=== PATIENT | female | born 1930 | race Hispanic/Latino ===

== ENCOUNTER 2018-07-09 20:56 | Inpatient (IN) | payer MEDICARE ==
[2018-07-09 21:10] VITALS: BMI 24.9
--- NOTE | 2018-07-09 22:21 | ED PDOC ---
Arrival/HPI - General Historian: Patient - History of Present Illness Narrative History of Present Illness (Text): 07/09/18 22:18 87 year old female, with no significant past medical history, presents to the emergency department for evaluation, status post mechanical fall. Patient states she slipped while at home and fell. Patient states she fell onto her left side, hurting her left knee and left hip. Patient denies any head injury or LOC. Patient denies any neck pain, back pain, nausea, vomiting, diarrhea, abdominal pain, shortness of breath, chest pain, or any other complaints. Time/Duration: Prior to Arrival Symptom Onset: Sudden Symptom Course: Unchanged Activities at Onset: Light Context: Home <Misty Carballo PA-C - Last Filed: 07/10/18 01:13> <Bharath Hearn - Last Filed: 07/10/18 02:03> - General Chief Complaint: Trauma Time Seen by Provider: 07/09/18 21:19 Past Medical History - Provider Review Nursing Documentation Reviewed: Yes - Infectious Disease Hx of Infectious Diseases: None - Tetanus Immunization Tetanus Immunization: Unknown - Cardiac Hx Hypertension: Yes - Hematological/Oncological Hx Cancer: Yes (L breast CA with mastectomy) - Psychiatric Hx Depression: No Hx Emotional Abuse: No Hx Physical Abuse: No Hx Substance Use: No - Surgical History Hx Hysterectomy: Yes Hx Mastectomy: Yes (LEFT BREAST) - Anesthesia Hx Anesthesia: Yes Hx Anesthesia Reactions: No Hx Malignant Hyperthermia: No - Suicidal Assessment Feels Threatened In Home Enviroment: No <Misty Carballo PA-C - Last Filed: 07/10/18 01:13> Family/Social History - Physician Review Nursing Documentation Reviewed: Yes Family/Social History: No Known Family HX Smoking Status: Never Smoked Hx Alcohol Use: No Hx Substance Use: No Hx Substance Use Treatment: No <Misty Carballo PA-C - Last Filed: 07/10/18 01:13> Allergies/Home Meds <Misty Carballo PA-C - Last Filed: 07/10/18 01:13> <Bharath Hearn - Last Filed: 07/10/18 02:03> Allergies/Adverse Reactions: Allergies Penicillins Allergy (Verified 07/09/18 21:10) RASH Home Medications: Home Meds Medication Instructions Recorded Confirmed Atorvastatin Calcium [Lipitor] 10 mg PO DAILY 07/16/12 07/09/18 Metoprolol Succinate XL [Toprol XL] 25 mg PO DAILY 07/16/12 07/09/18 Meclizine [Antivert] 25 mg PO PRN PRN 01/31/14 07/09/18 Review of Systems - Physician Review All systems were reviewed & negative as marked: Yes - Review of Systems Respiratory: absent: SOB Cardiovascular: absent: Chest Pain Gastrointestinal: absent: Abdominal Pain, Diarrhea, Nausea, Vomiting Musculoskeletal: Arthralgias (Left hip and left knee). absent: Back Pain, Neck Pain <Misty Carballo PA-C - Last Filed: 07/10/18 01:13> Physical Exam Vital Signs Reviewed: Yes Vital Signs Temp Pulse Resp BP Pulse Ox 07/09/18 21:59 98.0 F 70 18 130/76 99 Temperature: Afebrile Blood Pressure: Normal Pulse: Regular Respiratory Rate: Normal Appearance: Positive for: Well-Appearing, Non-Toxic, Comfortable Pain Distress: None Mental Status: Positive for: Alert and Oriented X 3 - Systems Exam Head: Present: Atraumatic, Normocephalic Pupils: Present: PERRL Extroacular Muscles: Present: EOMI Conjunctiva: Present: Normal Mouth: Present: Moist Mucous Membranes Neck: Present: Normal Range of Motion Respiratory/Chest: Present: Clear to Auscultation, Good Air Exchange. No: Respiratory Distress, Accessory Muscle Use Cardiovascular: Present: Regular Rate and Rhythm, Normal S1, S2. No: Murmurs Abdomen: No: Tenderness, Distention, Peritoneal Signs Back: Present: Normal Inspection Upper Extremity: Present: Normal Inspection. No: Cyanosis, Edema Lower Extremity: No: Edema, NORMAL PULSES (Distal pulses weak bilaterally), Normal ROM (Limited ROM secondary to pain of the lower left extremity) Neurological: Present: GCS=15, CN II-XII Intact, Speech Normal Skin: Present: Warm, Dry, Normal Color. No: Rashes Psychiatric: Present: Alert, Oriented x 3, Normal Insight, Normal Concentration <Misty Carballo PA-C - Last Filed: 07/10/18 01:13> Vital Signs Temp Pulse Resp BP Pulse Ox 07/09/18 22:37 98.3 F 68 18 136/90 98 07/09/18 21:59 98.0 F 70 18 130/76 99 <Bharath Hearn - Last Filed: 07/10/18 02:03> Medical Decision Making ED Course and Treatment: 07/09/18 22:23 Impression: 87 year old female, presents for evaluation of left leg pain status post fall. Plan: -- Tylenol -- Xray left femur -- Xray left hip -- Xray left knee -- Reassess and disposition Prior Visits: Notes and results from previous visits were reviewed. Progress Notes: 07/10/18 00:30 Xray left femur : +comminuted fracture of the L hip just below the greater trochanter, no dislocation. Xray left hip : +comminuted fracture of the L hip just below the greater trochanter, no dislocation. Xray left knee : no fracture, no dislocation. On reevaluation, patient remains awake alert and oriented 3 in no acute distress. XR results d/w the patient and her son, diagnosis of L hip fracture d/w the patient and her son. Son states that the patient has seen Dr. Carranza in the past. Case d/w Dr. Carranza, agrees with plan to admit. Case d/w Dr. Najera, agrees with plan to admit with consult to Dr. Caballero. Labs, EKG, CXR ordered. 07/10/18 01:13 Labs reviewed : wbc 15, rest of labs wnl. CXR : NAD. - RAD Interpretation Radiology Orders: 07/09/18 21:29 FEMUR MIN 2 VIEWS LT [RAD] Stat HIP MIN 2V W/ PELVIS LT [RAD] Stat KNEE LEFT 2 VIEWS (AP & LAT) [RAD] Stat - Medication Orders Current Medication Orders: Discontinued Medications Acetaminophen (Tylenol 325mg Tab) 650 mg PO STAT STA Stop: 07/09/18 21:30 Last Admin: 07/09/18 21:41 Dose: 650 mg MAR Pain/Vitals Document 07/09/18 21:41 JOL (Rec: 07/09/18 21:42 JOL [id number]) Pain Reassessment Is This A Pain ReAssessment? No Sleep Is patient sleeping during reassessment? No Presence of Pain Presence of Pain Yes Pain Scale Used Protocol: PSCALES Pain Scale Used Numeric Location Pain Location Body Site Hip Intensity 6 Scale Used Numeric <Misty Carballo PA-C - Last Filed: 07/10/18 01:13> - Lab Interpretations Lab Results: PT 11.2 SECONDS (9.4-12.5) 07/10/18 00:15 INR 1.01 07/10/18 00:15 APTT 29.7 Seconds (26.9-38.3) 07/10/18 00:15 Total Bilirubin 0.3 mg/dL (0.2-1.3) 07/10/18 00:15 AST 25 U/L (14-36) 07/10/18 00:15 ALT 13 U/L (7-56) 07/10/18 00:15 Alkaline Phosphatase 119 U/L (38-126) 07/10/18 00:15 Total Protein 7.0 g/dL (5.8-8.3) 07/10/18 00:15 Albumin 4.0 g/dL (3.0-4.8) 07/10/18 00:15 Globulin 3.0 gm/dL 07/10/18 00:15 Albumin/Globulin Ratio 1.3 (1.1-1.8) 07/10/18 00:15 - RAD Interpretation Radiology Orders: 07/09/18 21:29 FEMUR MIN 2 VIEWS LT [RAD] Stat HIP MIN 2V W/ PELVIS LT [RAD] Stat KNEE LEFT 2 VIEWS (AP & LAT) [RAD] Stat 07/10/18 00:00 CHEST PORTABLE [RAD] Stat - EKG Interpretation EKG Interpretation (Text): 07/10/18 02:03 0200: ekg my read: sinus rhythm at 76 bpm, nml qrs, nml axis, nonspecific t wave abn Interpreted by ED Physician: Yes - Medication Orders Current Medication Orders: Discontinued Medications Acetaminophen (Tylenol 325mg Tab) 650 mg PO STAT STA Stop: 07/09/18 21:30 Last Admin: 07/09/18 21:41 Dose: 650 mg MAR Pain/Vitals Document 07/09/18 21:41 JOL (Rec: 07/09/18 21:42 JOL [id number]) Pain Reassessment Is This A Pain ReAssessment? No Sleep Is patient sleeping during reassessment? No Presence of Pain Presence of Pain Yes Pain Scale Used Protocol: PSCALES Pain Scale Used Numeric Location Pain Location Body Site Hip Intensity 6 Scale Used Numeric Morphine Sulfate (Morphine) 2 mg IVP STAT STA Stop: 07/10/18 00:39 Last Admin: 07/10/18 00:35 Dose: 2 mg MAR Pain Assessment Document 07/10/18 00:35 JOL (Rec: 07/10/18 01:43 [id number] Pain Reassessment Is this a pain reassessment? No Sleep Is patient sleeping during reassessment? No Presence of Pain Presence of Pain Yes Pain Scale Used Protocol: PSCALES Pain Scale Used Numeric Location Left, Right or Bilateral Left Pain Location Body Site Groin Description Intensity of Pain at present 8 IVP Administration Document 07/10/18 00:35 JO (Rec: 07/10/18 01:43 [id number] Charges for Administration # of IVP Administrations 1 Ondansetron HCl (Zofran Inj) 4 mg IVP STAT STA Stop: 07/10/18 00:39 <Bharath Hearn - Last Filed: 07/10/18 02:03> - PA / SECURITY ASSURANCE SPECIALIST / Resident Statement MD/ has reviewed & agrees with the documentation as recorded. - Scribe Statement The provider has reviewed the documentation as recorded by the Antwan Colunga Provider Scribe Attestation: All medical record entries made by the Scribnora were at my direction and personally dictated by me. I have reviewed the chart and agree that the record accurately reflects my personal performance of the history, physical exam, medical decision making, and the department course for this patient. I have also personally directed, reviewed, and agree with the discharge instructions and disposition. <Misty Carballo PA-C - Last Filed: 07/10/18 01:13> Disposition/Present on Arrival - Present on Arrival Any Indicators Present on Arrival: No History of DVT/PE: No History of Uncontrolled Diabetes: No Urinary Catheter: No History of Decub. Ulcer: No History Surgical Site Infection Following: None - Disposition Have Diagnosis and Disposition been Completed?: Yes Disposition Time: 00:30 Patient Plan: Admission <Misty Carballo PA-C - Last Filed: 07/10/18 01:13> <Bharath Hearn - Last Filed: 07/10/18 02:03> - Disposition Diagnosis: Hip fracture, left Disposition: HOSPITALIZED Patient Problems: Current Active Problems Problem Status Onset Hip fracture, left Acute Condition: FAIR
[2018-07-10] MEDS ORDERED: Morphine 2 mg/ml ISec ONE (00:30)
[2018-07-10] MEDS ORDERED: Morphine 2 mg/ml ISec IVP STA ×2 (00:38→02:45)
[2018-07-10 00:41] LABS: BASO # 0.02 K/mm3 (0.0-2.0); BASO % 0.1 % (0.0-3.0); HEMOGLOBIN 12.8 g/dL (12.0-16.0); LYMPH # 1.2 (1.2-3.4); LYMPH % 7.4 % (22.0-35.0); MEAN CELL VOLUME 86.1 fl (80.0-105.0); MEAN CORPUSCULAR HEMOGLOBIN 29.1 pg (25.0-35.0); MEAN CORPUSCULAR HGB CONC 33.8 g/dl (31.0-37.0); MEAN PLATELET VOLUME 9.1 fl (7.0-11.0); MONO # 0.4 (0.1-0.6); MONO % 2.5 % (1.0-6.0); RBC 4.4 10^6/uL (3.5-6.1); RED CELL DISTRIBUTION WIDTH 13.3 % (11.5-14.5); WHITE BLOOD COUNT 15.9 10^3/uL (4.5-11.0)
[2018-07-10 00:49] LABS: INR 1.01; PARTIAL THROMBOPLASTIN TIME 29.7 Seconds (26.9-38.3); PROTHROMBIN TIME 11.2 SECONDS (9.4-12.5)
[2018-07-10 00:51] LABS: ALB/GLOB RATIO 1.3 (1.1-1.8); ALT/SGPT 13 U/L (7-56); AST/SGOT 25 U/L (14-36); BLOOD UREA NITROGEN 21 mg/dL (7-21); CALCIUM 9.2 mg/dL (8.4-10.5); GFR NON-AFRICAN AMERICAN 59
[2018-07-10 03:02] LABS: PH,URINE 5.5 (4.7-8.0); URINE BILIRUBIN NEGATIVE (NEGATIVE); URINE BLOOD NEGATIVE (NEGATIVE); URINE GLUCOSE (UA) NEGATIVE (NEGATIVE); URINE LEUKOCYTE ESTERASE NEGATIVE Leu/uL (NEGATIVE); URINE PROTEIN NEGATIVE mg/dL (<30 mg/dL); URINE UROBILINOGEN 0.2 E.U./dL (<1 E.U./dL)
[2018-07-10 03:03] LABS: URINE APPEARANCE SL CLOUDY (CLEAR); URINE COLOR YELLOW (YELLOW)
[2018-07-10 03:13] LABS: URINE BACTERIA MANY /hpf; URINE EPITHELIAL CELLS 0 - 2 /hpf (0-5); URINE RBC 0 - 2 /hpf (0-2); URINE WBC 0 - 2 /hpf (0-6)
[2018-07-10] MEDS ORDERED: Lactated Ringer's 1,000 ML IV SCH ×2 (04:45→16:00)
[2018-07-10] MEDS ORDERED: HYDROmorphone 2 mg/ml ISec IVP PRN (07:09)
--- NOTE | 2018-07-10 08:16 | CT ---
Date of service: 07/10/2018 PROCEDURE: CT HEAD WITHOUT CONTRAST. HISTORY: head inj landed on floor no loc COMPARISON: None available. TECHNIQUE: Axial computed tomography images were obtained through the head/brain without intravenous contrast. Radiation dose: Total exam DLP = 772.07 mGy-cm. This CT exam was performed using one or more of the following dose reduction techniques: Automated exposure control, adjustment of the mA and/or kV according to patient size, and/or use of iterative reconstruction technique. FINDINGS: HEMORRHAGE: No intracranial hemorrhage. BRAIN: No mass effect or edema. Chronic microvascular changes and moderate to severe atrophy. No acute findings VENTRICLES: Unremarkable. No hydrocephalus. CALVARIUM: Unremarkable. PARANASAL SINUSES: Unremarkable as visualized. No significant inflammatory changes. MASTOID AIR CELLS: Unremarkable as visualized. No inflammatory changes. OTHER FINDINGS: None. IMPRESSION: Chronic microvascular changes and moderate to severe atrophy. No acute findings
--- NOTE | 2018-07-10 08:59 | CON ---
DATE: 07/10/2018 ORTHOPEDIC CONSULT The patient slipped and fell after getting up the stairs, must have fell reaching for her rope last night. She lives with her son to family floor. When she fell, she did not hit her head, but landed on the left hip and x-ray showed comminuted intertrochanteric fracture and great trochanter fracture of that left hip closed injury. She is being prepared for ORIF, to put a pin in the left hip, so she get up out of bed. Hopefully, we could do the surgery today about 1' o clock. She will be okay. see medical doctor and the secondary education professor and we are going to get a CAT scan of her head, and son was told the risks and benefits. We will try to do her left hip fracture in the left hip. Then, she will be able to get out of bed and it will make much less pain, and we will give a consent for possible blood transfusion to her. Varun Carranza DO
--- NOTE | 2018-07-10 09:50 | RAD ---
Date of service: 07/10/2018 HISTORY: for OR COMPARISON: No prior. FINDINGS: LUNGS: No active pulmonary disease. PLEURA: No significant pleural effusion identified, no pneumothorax apparent. CARDIOVASCULAR: Aortic calcification and tortuosity Mild cardiomegaly no pulmonary vascular congestion. OSSEOUS STRUCTURES: No significant abnormalities. VISUALIZED UPPER ABDOMEN: Normal. OTHER FINDINGS: None. IMPRESSION: No active disease.
[2018-07-10] MEDS ORDERED: Magnesium Sulfate 2 gm/50 ml 2 GM/50 ML BAG IVPB ONE (10:10)
--- NOTE | 2018-07-10 10:10 | RAD ---
Date of service: 07/09/2018 PROCEDURE: Pelvis and left hip HISTORY: fall COMPARISON: TECHNIQUE: Four views FINDINGS: There is a comminuted fracture of the left hip which is intertrochanteric. There is also a transverse component the trochanter from the proximal femoral shaft. IMPRESSION: There is a comminuted fracture of the left hip which is intertrochanteric. There is also a transverse component the trochanter from the proximal femoral shaft.
--- NOTE | 2018-07-10 10:10 | RAD ---
Date of service: 07/09/2018 PROCEDURE: Left femur HISTORY: pain COMPARISON: Left hip TECHNIQUE: Four views FINDINGS: IMPRESSION: There is a comminuted fracture of the left hip which is intertrochanteric. There is also a transverse component the trochanter from the proximal femoral shaft. The distal femur is unremarkable
--- NOTE | 2018-07-10 10:11 | RAD ---
Date of service: 07/09/2018 PROCEDURE: Left Knee Radiographs. HISTORY: Pain. COMPARISON: None. FINDINGS: BONES: Normal. No fracture. JOINTS: Normal. No osteoarthritis. JOINT EFFUSION: None. OTHER FINDINGS: None. IMPRESSION: Normal radiographs of the left knee.
[2018-07-10] MEDS ORDERED: Metoprolol Succinate 25 mg XL Tab PO STA (10:15)
--- NOTE | 2018-07-10 13:05 | CP.PCM.APN ---
Subjective - Date & Time of Evaluation Date of Evaluation: 07/10/18 Time of Evaluation: 08:30 - Subjective Subjective: Pt seen and examined at bedside. She is in no acute distress. Pt is awake and alert, oriented to self, disoriented to place and time. Per pt's son at bedside, this is her baseline mental status. Objective - Vital Signs/Intake and Output Vital Signs (last 24 hours): Temp Pulse Resp BP Pulse Ox 97.9 F 84 18 144/74 96 07/10/18 06:00 07/10/18 06:00 07/10/18 06:00 07/10/18 11:08 07/10/18 06:00 Intake and Output: 07/10/18 07/10/18 06:59 18:59 Output Total 400 Balance -400 - Medications Medications: Current Medications Atorvastatin Calcium (Lipitor) 10 mg PO DAILY COUNT INCLUDES THE [facility] Hydromorphone HCl (Dilaudid) 2 mg IVP Q6H PRN PRN Reason: Pain, severe (8-10) Last Admin: 07/10/18 07:34 Dose: 2 mg Lactated Ringer's (Lactated Ringer's) 1,000 mls @ 80 mls/hr IV .[id number] COUNT INCLUDES THE [facility] Stop: 07/11/18 10:00 Metoprolol Succinate (Toprol Xl) 25 mg PO DAILY GIBSON - Labs Labs: 07/10/18 00:15 07/10/18 00:15 PT 11.2 SECONDS (9.4-12.5) 07/10/18 00:15 INR 1.01 07/10/18 00:15 APTT 29.7 Seconds (26.9-38.3) 07/10/18 00:15 - Constitutional Appears: No Acute Distress - Respiratory Exam Respiratory Exam: Clear to Ausculation Bilateral, NORMAL BREATHING PATTERN - Cardiovascular Exam Cardiovascular Exam: REGULAR RHYTHM, +S1, +S2 - GI/Abdominal Exam GI & Abdominal Exam: Soft, Normal Bowel Sounds - Rectal Exam Rectal Exam: Deferred - Neurological Exam Neurological Exam: Alert, Awake Assessment and Plan - Assessment and Plan (Free Text) Assessment: Pt is an 87 y.o. female who presented in ED s/p fall. She was found to have comminuted fx of L hip w/c is intertochanteric. Pt is for possible ORIF this afternoon by Dr. Carranza. ITS Impressions Femur X-Ray 07/09/18 21:29 IMPRESSION: There is a comminuted fracture of the left hip which is intertrochanteric. There is also a transverse component the trochanter from the proximal femoral shaft. The distal femur is unremarkable Hip/Pelvis X-Ray 07/09/18 21:29 IMPRESSION: There is a comminuted fracture of the left hip which is intertrochanteric. There is also a transverse component the trochanter from the proximal femoral shaft. Knee X-Ray 07/09/18 21:29 IMPRESSION: Normal radiographs of the left knee. Chest X-Ray 07/10/18 00:00 IMPRESSION: No active disease. Head CT 07/10/18 07:20 IMPRESSION: Chronic microvascular changes and moderate to severe atrophy. No acute findings
[2018-07-10] MEDS ORDERED: Bupivacaine 0.5% 50 ML IJ ONE (13:59)
[2018-07-10] MEDS ORDERED: Propofol 10 mg/ml Inj (20 ML) ONE (14:14)
[2018-07-10] MEDS ORDERED: Rocuronium 10 mg/ml (5 ml) ONE (14:15)
[2018-07-10] MEDS ORDERED: Vancomycin 1 g Inj ONE (15:25)
[2018-07-10] MEDS ORDERED: Glycopyrrolate 0.2 mg/ml (2ml vial) ONE (15:34)
[2018-07-10] MEDS ORDERED: Bupivacaine 0.5% Inj(30mL) IJ ONE (15:36)
[2018-07-10] MEDS ORDERED: Morphine 2 mg/ml ISec IVP PRN (16:00)
[2018-07-10] MEDS ORDERED: HYDROmorphone 0.5 mg/0.5 ml ISec SC PRN (16:12)
--- NOTE | 2018-07-10 17:58 | RAD ---
Date of service: 07/10/2018 PROCEDURE: Fluoroscopy up to 1 hr. HISTORY: O.R.I.F. OF LEFT HIP FX. COMPARISON: None TECHNIQUE: Standard protocol for this study/examination. FINDINGS: Total fluoroscopic time (continuous mode) utilized during the procedure 94.4 seconds. Total exam DLP: 0.51 (mGy). IMPRESSION: Less than 1 hr fluoroscopic assistance provided during performance of the procedure.
--- NOTE | 2018-07-10 20:07 | CON ---
DATE: 07/10/2018 REASON FOR CONSULTATION: Preop evaluation, risk stratification, status post left hip fracture and status post fall. BRIEF CLINICAL HISTORY: An 87-year-old female, very poor historian, unable to give the history, information obtained from the son calling son Ag Peña, telephone number [phone], who claims that no significant past medical history, hyperlipidemia on Simvastatin. The patient was in her bedroom, trying to get into bed and fell. Son was washing the dishes and he felt the thump, patient then was found on the floor, brought here, found to be left hip fracture; so, the patient is scheduled for OR internal fixation this afternoon [address] Carranza so the patient is being seen for preop evaluation risk stratification. The patient's son denies any chest pain. Denies any shortness of breath, denies any palpitation. According to son is pretty active and takes care of herself. No complaint of recent chest pain, shortness of breath, or any palpitation. PAST MEDICAL HISTORY: Past history significant for hyperlipidemia, borderline hypertension, and vertigo. Denies any history of documented coronary artery disease or significant high blood pressure or diabetes. CURRENT MEDICATIONS: The patient is taking metoprolol succinate 25 mg once a day, meclizine Antivert 25 mg p.o. p.r.n., and Simvastatin or atorvastatin according to the son 10 mg daily. ALLERGIES: TO PENICILLIN. SOCIAL HISTORY: Denies any history of alcohol abuse. PREVIOUS CARDIAC WORKUP: Way back, patient had a Holter monitoring stress test in 2010. Since the patient does not have any cardiac workup and no complaint. PHYSICAL EXAMINATION: GENERAL: Height of the patient 5 feet 4 inches. Weight of the patient 145 pounds. Body mass index 25 kg/m2. VITAL SIGNS: Rest of the vitals, temperature afebrile, heart rate 80, and blood pressure 144/74. HEENT: PERRLA. Extraocular muscles intact. NECK: Supple. No carotid bruit. No thyromegaly. CHEST: Clear to auscultation. HEART: S1 and S2, regular. ABDOMEN: Soft. EXTREMITIES: Clubbing and cyanosis, negative. LABORATORY DATA: Blood workup as follows, WBC 15.9, hemoglobin 12.8, hematocrit 37.9, and platelet count 334. Chemistry shows sodium 134, potassium 3.6, chloride 99, carbon dioxide 27, anion gap of 12, BUN 21, and creatinine 0.9. EKG shows normal sinus rhythm, no acute ST-T changes noted, nonspecific ST-T changes noted. IMPRESSION: An 87-year-old female with past medical history of only hyperlipidemia, borderline blood pressure, benign positional vertigo who fell down and sustained a fracture of the hip, requiring Operative Room internal fixation. No documented history of arrhythmia or coronary artery disease or ischemia. No history of recent congestive heart failure, arrhythmia, or angina. The patient is cleared to go for surgery with moderate to high risk because of underlying comorbidity. No absolute contraindication. We will clear the patient, followup closely. Thank you Dr. Hayes/Dr. Carranza for providing the opportunity in taking care of the patient, Casey Patten. We will supplement the magnesium and potassium for the patient. We will notify Dr. Carranza and Dr. Hayes that patient is cleared to go for surgery. Henok Carrlol MD
--- NOTE | 2018-07-10 21:00 | HP ---
DATE OF EXAM: 07/10/2018 CHIEF COMPLAINT: Fall at home, fractured left hip. HISTORY OF PRESENT ILLNESS: This is an 87-year-old woman who lives at home with her son. She fell in the acevedo upstairs, was unable to get up, called for her son. She was in quite a bit of left-sided hip pain. Ambulance was called and she was taken to the emergency room where a fractured hip was discovered on x-ray. Orthopedic consultation with Dr. Carranza was called and the patient was admitted. PAST MEDICAL HISTORY: Significant for hypertension since 12/1999. She has been on cholesterol medicines since 01/2001. Past history is negative for diabetes, tuberculosis, asthma, seizures, gout, COPD, CVA, TIA, MS, or coronary artery disease. She had breast cancer and a radical mastectomy in 1956 on the left breast and she had a colon resection in 1992 for a malignant pedunculated polyp found on routine sigmoidoscopy. Her last colonoscopy was in 2004. She has refused colonoscopy and mammography ever since. She had stress tests in 2003 and 2010. She does not get or want the flu shot or the pneumonia vaccine. PAST SURGICAL HISTORY: Significant for the mastectomy in 1956, a vaginal carbuncle in 2017, colon resection in 1992. Hospitalization for vagal syncope in 1995, arthroscopy of the right knee in 2001, hospitalized with hypertension and SVT in 2003, arthroscopy of the left knee in 2009, and cataract surgery in 2005. ALLERGIES: SHE IS ALLERGIC TO PENICILLIN, WHICH CAUSES A RASH. FAMILY HISTORY: Her mother passed at age 80. Her father of coronary artery disease at age 70. She is the youngest of seven sibs with a fraternal twin. She is a . Her in the year 1999. She has two sons, Ag who lives with her in [place] and her other son who lives in [place], [place] who is with two children. She did lost one child of sudden syndrome at the age of [age]. SOCIAL HISTORY: She does not smoke, never did. Does not drink alcohol. Drinks one cup of coffee per day. REVIEW OF SYSTEMS: Problem list in the office shows hypertension, hyperlipidemia, status post breast CA and status post colon CA in situ on her office chart. Review of systems is otherwise negative, but the patient is a bit sedated. PHYSICAL EXAMINATION GENERAL: She is lying comfortably in bed in Room 563, Bed 1. She is awake and alert but appears a bit confused. Her mentation was a bit slow at first, perhaps related to the stress of the fall and sedation, this is a little bit off from her baseline, but her baseline speech pattern is a bit slow and deliberate. There is a history of some recent memory loss and forgetfulness, or at least that concern amongst her family. HEENT: Head and neck are unremarkable. Conjunctivae pink. Neck is supple without masses. Thyroid is not palpable. LUNGS: Show good aeration right and left. HEART: Regular and not tachycardic. ABDOMEN: Soft, nontender. EXTREMITIES: Show no edema. Left leg is externally rotated. IMPRESSION 1. Fractured left hip. 2. Hypertension. 3. Hyperlipidemia. 4. Early memory loss and forgetfulness according to the family is a concern, which the patient up until her most recent physical a week ago vehemently denies. 5. Status post breast cancer 1956. 6. 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 PLAN Patient was headed to the OR later this afternoon with Dr. Varun Carranza. We will follow her postoperatively. Holden Nicolas MD
--- NOTE | 2018-07-10 22:54 | CARD ---
APPROVED REPORT Date of service: 07/10/2018 EKG Measurement Heart [id number] ID [id number] <Conclusion> Sinus rhythm with fusion complexes Leftward axis Nonspecific ST and T wave abnormality Abnormal ECG
--- NOTE | 2018-07-10 23:09 | OP ---
PROCEDURE DATE: 07/10/2018 PREOPERATIVE DIAGNOSIS: Displaced intertrochanteric subtrochanteric fracture of her left hip with comminution. POSTOPERATIVE DIAGNOSIS: Displaced intertrochanteric subtrochanteric fracture of her left hip with comminution. TYPE OF ANESTHESIA: General endotracheal tube. PROCEDURE: Open reduction and internal fixation using a Biomet peritrochanteric nail. The nail was 220 mm long x 11 mm locked proximally to lag screw the femoral head and neck, a 100 mm long x 11 mm, and locked distally with a 5 mm x 30 mm cortical screw. DESCRIPTION OF PROCEDURE: Summary is as follows. The patient was taken to the OR. The left hip prepped and draped in sterile fashion on the fracture table. Gentle traction and general anesthesia with endotracheal tube. C-arm showed that I could reduce the fracture 80% and the rest was done manually. At this time once it was reduced, we put the guidewire through the proximal lacerations 2 cm long to center into the greater trochanter. Even though it was comminuted, we had to estimate where it was, and putting it distally and putting the premeasured 220 mm long madi through the guidewire into the greater trochanter past the fracture into the shaft and locked it proximally with a second incision and an outrigger to get us to put in the nail head. We reamed it and put the nail to the guidewire, it turned out to be a 100 mm long nail, which was put in after we reamed it and that held it reduced proximally. We impacted the fracture and locked it proximally and then distally. With the fracture in good position and impacted, we locked it distally with a 5 x 30 mm long cortical screw. X-rays showed good position of the fracture and the hardware. Wounds were irrigated with normal saline and closed in layers starting with 0-Vicryl for deep layer, fascia 2-0 subcutaneous, and skin with 3-0 nylon interrupted. The patient was taken to the recovery room in good condition. Varun Carranza DO
[2018-07-11 06:32] LABS: BASO # 0.01 K/mm3 (0.0-2.0); BASO % 0.1 % (0.0-3.0); EOS % 0.2 % (1.5-5.0); LYMPH # 1.2 (1.2-3.4); LYMPH % 14.9 % (22.0-35.0); MEAN CELL VOLUME 86.6 fl (80.0-105.0); MEAN CORPUSCULAR HEMOGLOBIN 29.2 pg (25.0-35.0); MEAN CORPUSCULAR HGB CONC 33.7 g/dl (31.0-37.0); MEAN PLATELET VOLUME 8.7 fl (7.0-11.0); MONO # 0.6 (0.1-0.6); MONO % 7.2 % (1.0-6.0); RBC 3.43 10^6/uL (3.5-6.1); RED CELL DISTRIBUTION WIDTH 13.9 % (11.5-14.5); WHITE BLOOD COUNT 8.1 10^3/uL (4.5-11.0)
[2018-07-11 06:39] LABS: ALB/GLOB RATIO 1.2 (1.1-1.8); ALT/SGPT 14 U/L (7-56); AST/SGOT 23 U/L (14-36); BLOOD UREA NITROGEN 20 mg/dL (7-21); CALCIUM 8.3 mg/dL (8.4-10.5); GFR NON-AFRICAN AMERICAN 59; HDL CHOLESTEROL 33 mg/dL (29-60)
[2018-07-11 06:47] LABS: LDL CHOLESTEROL 73 mg/dL (0-129)
--- NOTE | 2018-07-11 07:20 | CP.PCM.PN ---
Subjective - Date & Time of Evaluation Date of Evaluation: 07/11/18 Time of Evaluation: 06:25 - Subjective Subjective: Awake, alert, no distress Reason for consultation and follow up: Cardiac clearance and risk stratification for hip surgery, post op follow up post ORIF of left hip.History of hyperlipidemia. Seen and examined by me and Dr. Carroll Objective - Vital Signs/Intake and Output Vital Signs (last 24 hours): Temp Pulse Resp BP Pulse Ox 98.4 F 74 18 136/58 L 98 07/10/18 22:40 07/10/18 22:40 07/10/18 22:40 07/10/18 22:40 07/10/18 22:40 Intake and Output: 07/11/18 07/11/18 06:59 18:59 Intake Total 240 Output Total 225 Balance 15 - Medications Medications: Current Medications Atorvastatin Calcium (Lipitor) 10 mg PO DAILY [facility] Hydromorphone HCl (Dilaudid) 2 mg IVP Q6H PRN PRN Reason: Pain, severe (8-10) Last Admin: 07/10/18 07:34 Dose: 2 mg Hydromorphone HCl (Dilaudid) 0.5 mg SC Q4H PRN PRN Reason: Pain, moderate (4-7) Lactated Ringer's (Lactated Ringer's) 1,000 mls @ 80 mls/hr IV .[id number] [facility] Stop: 07/11/18 10:00 Last Admin: 07/11/18 05:45 Dose: 80 mls/hr Metoclopramide HCl (Reglan) 10 mg IV ONCE PRN PRN Reason: Nausea/Vomiting Metoprolol Succinate (Toprol Xl) 25 mg PO DAILY [facility] Morphine Sulfate (Morphine) 2 mg IVP Q15M PRN PRN Reason: Pain, moderate (4-7) - Labs Labs: 07/11/18 05:45 07/11/18 05:45 PT 11.2 SECONDS (9.4-12.5) 07/10/18 00:15 INR 1.01 07/10/18 00:15 APTT 29.7 Seconds (26.9-38.3) 07/10/18 00:15 - Constitutional Appears: Non-toxic, No Acute Distress - Head Exam Head Exam: NORMAL INSPECTION, NORMOCEPHALIC - Eye Exam Eye Exam: Normal appearance Pupil Exam: NORMAL ACCOMODATION - ENT Exam ENT Exam: Mucous Membranes Moist - Respiratory Exam Respiratory Exam: Clear to Ausculation Bilateral, NORMAL BREATHING PATTERN - Cardiovascular Exam Cardiovascular Exam: +S1, +S2 - GI/Abdominal Exam GI & Abdominal Exam: Soft, Normal Bowel Sounds - Extremities Exam Additional comments: left hip dressing - Neurological Exam Neurological Exam: Alert, Awake - Psychiatric Exam Psychiatric exam: Normal Affect, Normal Mood - Skin Skin Exam: Dry, Normal Color, Warm Assessment and Plan - Assessment and Plan (Free Text) Assessment: An 87 year old female who came in to the ER due to fall and X ray showed left hip fracture. History of hyperlipidemia, hypertension and syncope, vertigo, remote left breast cancer with radical mastectomy in 1956, colon resection for malignant polyp in 1992, right and left knee arthroscopy, supraventricular tachycardia. Denies chest pain and shortness of breath. She was cleared for surgery from cardiac standpoint with moderate risk. Status post ORIF of left hip POD#1. Cardiac status stable. Plan: Status post ORIF of left hip POD#1 Pain management No distress, denies chest pain Heart rate controlled Blood pressure controlled Cardiac status stable On Lipitor 10 mg daily,Toprol 25 mg daily Continue current treatment Continue current medications Will follow up Physical therapy Discharge planning Plan and treatment discussed with Dr. Carroll
[2018-07-11] MEDS ORDERED: Metoprolol Succinate 25 mg XL Tab PO SCH (10:00)
--- NOTE | 2018-07-11 12:15 | PN ---
DATE: 07/11/2018 LOCATION: The patient is in room 563, bed 1. SUBJECTIVE: Underwent ORIF of her left intertrochanteric fracture on 07/10/2018. She did well. Has much pain in the left hip. Wound is dry. We are going to get her up out of bed today as her hemoglobin is 10 g, started out of 12.8, and lost blood some during surgery and hydration of the IV contributed to the lower hemoglobin. We will plan sending into subacute rehab in a day or two, and we will see how she does with therapy today. She could ambulate, weightbearing to tolerance with a walker. Varun Carranza DO
[2018-07-11] MEDS: Metoprolol Succinate 25 mg XL Tab PO SCH (18:52)
[2018-07-12] MEDS: HYDROmorphone 0.5 mg/0.5 ml ISec IVP PRN ×4 (01:34→23:38)
--- NOTE | 2018-07-12 06:49 | CP.PCM.PN ---
Subjective - Date & Time of Evaluation Date of Evaluation: 07/12/18 Time of Evaluation: 06:20 - Subjective Subjective: Lying in bed, awake, alert, no distress Reason for consultation and follow up: Cardiac clearance and risk stratification for hip surgery, post op follow up post ORIF of left hip.History of hyperlipidemia. Seen and examined by me and Dr. Carroll Objective - Vital Signs/Intake and Output Vital Signs (last 24 hours): Temp Pulse Resp BP Pulse Ox 99.7 F H 92 H 18 122/49 L 96 07/11/18 22:44 07/11/18 22:44 07/11/18 22:44 07/11/18 22:44 07/11/18 22:44 Intake and Output: 07/11/18 07/12/18 18:59 06:59 Intake Total 540 Output Total 650 Balance -110 - Medications Medications: Current Medications Atorvastatin Calcium (Lipitor) 10 mg PO DAILY [facility] Last Admin: 07/11/18 11:53 Dose: 10 mg Hydromorphone HCl (Dilaudid) 2 mg IVP Q6H PRN PRN Reason: Pain, severe (8-10) Last Admin: 07/10/18 07:34 Dose: 2 mg Hydromorphone HCl (Dilaudid) 0.5 mg IVP Q6H PRN PRN Reason: Pain, moderate (4-7) Last Admin: 07/12/18 01:34 Dose: 0.5 mg Metoclopramide HCl (Reglan) 10 mg IV ONCE PRN PRN Reason: Nausea/Vomiting Metoprolol Succinate (Toprol Xl) 25 mg PO DAILY [facility] Last Admin: 07/11/18 18:52 Dose: 25 mg Morphine Sulfate (Morphine) 2 mg IVP Q15M PRN PRN Reason: Pain, moderate (4-7) - Labs Labs: 07/11/18 05:45 07/11/18 05:45 PT 11.2 SECONDS (9.4-12.5) 07/10/18 00:15 INR 1.01 07/10/18 00:15 APTT 29.7 Seconds (26.9-38.3) 07/10/18 00:15 - Constitutional Appears: Non-toxic, No Acute Distress - Head Exam Head Exam: NORMAL INSPECTION, NORMOCEPHALIC - Eye Exam Eye Exam: Normal appearance Pupil Exam: NORMAL ACCOMODATION - ENT Exam ENT Exam: Mucous Membranes Moist, Normal Exam - Respiratory Exam Respiratory Exam: Decreased Breath Sounds, Clear to Ausculation Bilateral, NORMAL BREATHING PATTERN - Cardiovascular Exam Cardiovascular Exam: +S1, +S2 - GI/Abdominal Exam GI & Abdominal Exam: Soft, Normal Bowel Sounds - Extremities Exam Additional comments: left hip dressing - Neurological Exam Neurological Exam: Alert, Awake, Oriented x3 - Psychiatric Exam Psychiatric exam: Normal Affect, Normal Mood - Skin Skin Exam: Dry, Normal Color, Warm Assessment and Plan - Assessment and Plan (Free Text) Assessment: An 87 year old female who came in to the ER due to fall and X ray showed left hip fracture. History of hyperlipidemia, hypertension and syncope, vertigo, remote left breast cancer with radical mastectomy in 1956, colon resection for malignant polyp in 1992, right and left knee arthroscopy, supraventricular tachycardia. Denies chest pain and shortness of breath. She was cleared for surgery from cardiac standpoint with moderate risk. Cardiac status stable.Status post ORIF of left hip POD#2. Discharge planning. Plan: Feels okay, no appetite No distress, denies chest pain Status post ORIF of left hip POD#2 Pain management Heart rate controlled Blood pressure controlled Cardiac status stable On Lipitor 10 mg daily,Toprol 25 mg daily Continue current treatment Continue current medications Will follow up Physical therapy Discharge planning [place] for supplement Plan and treatment discussed with Dr. Carroll
[2018-07-12 07:53] LABS: ALB/GLOB RATIO 1.1 (1.1-1.8); ALBUMIN 3.1 g/dL (3.0-4.8); ALT/SGPT 16 U/L (7-56); AST/SGOT 25 U/L (14-36); BLOOD UREA NITROGEN 22 mg/dL (7-21); CALCIUM 8.6 mg/dL (8.4-10.5); GFR NON-AFRICAN AMERICAN > 60
[2018-07-12] MEDS: Tmp-Smz 800 mg-160 mg DS Tab PO SCH ×2 (11:48→17:46)
[2018-07-12] MEDS: Metoprolol Succinate 25 mg XL Tab PO SCH (11:56)
--- NOTE | 2018-07-12 12:17 | PN ---
DATE: 07/11/2018 DAILY PROGRESS NOTE SUBJECTIVE: The patient is an 87-year-old female who was admitted yesterday after a fall at home. She was brought to the emergency room diagnosed with a fractured hip and therefore was admitted. Consultation was performed by Dr. Carranza. During her hospital stay, the patient was brought to the operating room where surgical repair for hip fracture was performed. When seen today, the patient is sitting up in a chair at bedside. PHYSICAL EXAMINATION: GENERAL: She is awake, alert and oriented. Family members are present. She voices no complaints. VITAL SIGNS: Blood pressure is 132/54 and heart rate is 77. HEART: Regular. LUNGS: Clear. ABDOMEN: Soft and nontender. LABORATORY DATA: White blood cell count is 8.1, hemoglobin and hematocrit are 10 and 29.7 respectively. Potassium is 4.0, sodium is 134, blood urea nitrogen 20 and creatinine 0.9. Urinalysis shows positive urinary tract infection. The patient will be started on antibiotics for this and the patient will be followed closely. Varun Nicolas MD
--- NOTE | 2018-07-12 16:02 | PN ---
DATE: 07/10/2018 SUBJECTIVE: Underwent ORIF of her left hip on 07/10/2018. She is doing very well. Hemoglobin is stable at 10 g and she has less pain. Wounds are dry. So, we will plan on bringing her to subacute rehab to [facility] and I will follow her there. FINAL DIAGNOSIS: Left intertrochanteric fracture reduction, stabilized with peritrochanteric madi and she will be able to ambulate with a walker and weightbear as tolerated once she gets to subacute rehab at [facility]. Varun Carranza DO
[2018-07-12] MEDS: Dextrose 5%/0.45% NS 1,000 ML IV SCH (20:10)
--- NOTE | 2018-07-12 22:53 | PN ---
DATE: 07/12/2018 SUBJECTIVE: The patient was seen on morning in room 563, bed 1. Resting comfortably in no acute distress. She is more her usual self and in good spirits, more talkative after her hip fracture repair and reports minimal to no pain. PHYSICAL EXAMINATION: HEENT: Conjunctivae pink. Mucous membranes are moist. LUNGS: Show good aeration in right and left. HEART: Regular, not tachycardic. ABDOMEN: Soft. EXTREMITIES: Left leg show some edema from the recent surgery. ASSESSMENT AND PLAN: I explained to the patient that her hip fracture surgery is complete, now just go to physical therapy and increase activity. She is looking forward and will follow as she transferred to subacute rehab after most likely tomorrow. Holden Nicolas MD
--- NOTE | 2018-07-12 23:13 | CP.PCM.PCO ---
<Juliane Garsia - Last Filed: 07/12/18 23:10> Physician Communication Note - Physician Communication Note Physician Communication Note: No void since watkins removal, bladder scan >160, ordered to reinsert watkins <Colette Lindo - Last Filed: 07/13/18 19:33> Attending/Attestation - Attestation I have personally seen and examined this patient.: No I have fully participated in the care of the patient.: No I have reviewed all pertinent clinical information: No
--- NOTE | 2018-07-13 06:38 | CP.PCM.PN ---
Subjective - Date & Time of Evaluation Date of Evaluation: 07/13/18 Time of Evaluation: 06:20 - Subjective Subjective: Awake, alert, no distress, lying in bed Reason for consultation and follow up: Cardiac clearance and risk stratification for hip surgery, post op follow up post ORIF of left hip.History of hyperlipidemia. Seen and examined by me and Dr. Carroll Objective - Vital Signs/Intake and Output Vital Signs (last 24 hours): Temp Pulse Resp BP Pulse Ox 98.2 F 79 18 125/66 91 L 07/12/18 21:49 07/12/18 21:49 07/12/18 21:49 07/12/18 21:49 07/12/18 21:49 Intake and Output: 07/12/18 07/13/18 18:59 06:59 Intake Total 420 Output Total 200 Balance 220 - Medications Medications: Current Medications Atorvastatin Calcium (Lipitor) 10 mg PO DAILY [facility] Last Admin: 07/12/18 11:48 Dose: 10 mg Hydromorphone HCl (Dilaudid) 2 mg IVP Q6H PRN PRN Reason: Pain, severe (8-10) Last Admin: 07/10/18 07:34 Dose: 2 mg Hydromorphone HCl (Dilaudid) 0.5 mg IVP Q6H PRN PRN Reason: Pain, moderate (4-7) Last Admin: 07/12/18 23:38 Dose: 0.5 mg Dextrose/Sodium Chloride (Dextrose 5%/0.45% Ns 1000 Ml) 1,000 mls @ 80 mls/hr IV .[id number] [facility] Last Admin: 07/12/18 20:10 Dose: 80 mls/hr Metoclopramide HCl (Reglan) 10 mg IV ONCE PRN PRN Reason: Nausea/Vomiting Metoprolol Succinate (Toprol Xl) 25 mg PO DAILY [facility] Last Admin: 07/12/18 11:56 Dose: 25 mg Morphine Sulfate (Morphine) 2 mg IVP Q15M PRN PRN Reason: Pain, moderate (4-7) Trimethoprim/Sulfamethoxazole (Bactrim Ds Tab) 1 tab PO BID [facility]; Protocol Last Admin: 07/12/18 17:46 Dose: 1 tab - Labs Labs: 07/11/18 05:45 07/12/18 07:15 PT 11.2 SECONDS (9.4-12.5) 07/10/18 00:15 INR 1.01 07/10/18 00:15 APTT 29.7 Seconds (26.9-38.3) 07/10/18 00:15 - Constitutional Appears: Non-toxic, No Acute Distress - Head Exam Head Exam: NORMAL INSPECTION, NORMOCEPHALIC - Eye Exam Eye Exam: Normal appearance Pupil Exam: NORMAL ACCOMODATION - ENT Exam ENT Exam: Mucous Membranes Moist - Respiratory Exam Respiratory Exam: Decreased Breath Sounds, NORMAL BREATHING PATTERN - Cardiovascular Exam Cardiovascular Exam: +S1, +S2 - GI/Abdominal Exam GI & Abdominal Exam: Soft, Normal Bowel Sounds - Exam Additional comments: watkins catheter - Extremities Exam Additional comments: left hip dressing - Neurological Exam Neurological Exam: Alert, Awake - Psychiatric Exam Psychiatric exam: Normal Affect, Normal Mood - Skin Skin Exam: Dry, Normal Color, Warm Assessment and Plan - Assessment and Plan (Free Text) Assessment: An 87 year old female who came in to the ER due to fall and X ray showed left hip fracture. History of hyperlipidemia, hypertension and syncope, vertigo, remote left breast cancer with radical mastectomy in 1956, colon resection for malignant polyp in 1992, right and left knee arthroscopy, supraventricular tachycardia. Denies chest pain and shortness of breath. She was cleared for surgery from cardiac standpoint with moderate risk. Status post ORIF of left hip POD#3. Cardiac status stable. Discharge planning.Watkins was discontinued but reinserted due to no urine output. Plan: Status post ORIF of left hip POD#3 Feels okay, no appetite No distress, denies chest pain Pain management Heart rate controlled Blood pressure controlled Cardiac status stable On Lipitor 10 mg daily,Toprol 25 mg daily Continue current treatment Continue current medications Physical therapy Watkins catheter reinserted Discharge planning, going to [facility] follow up Plan and treatment discussed with Dr. Carroll
[2018-07-13 07:08] LABS: MEAN CELL VOLUME 86.1 fl (80.0-105.0); MEAN CORPUSCULAR HEMOGLOBIN 28.4 pg (25.0-35.0); MEAN PLATELET VOLUME 8.4 fl (7.0-11.0); RBC 3.17 10^6/uL (3.5-6.1); RED CELL DISTRIBUTION WIDTH 13.6 % (11.5-14.5); WHITE BLOOD COUNT 7.6 10^3/uL (4.5-11.0)
[2018-07-13 07:50] LABS: ALBUMIN 2.8 g/dL (3.0-4.8); ALT/SGPT 10 U/L (7-56); AST/SGOT 29 U/L (14-36); BLOOD UREA NITROGEN 19 mg/dL (7-21); CALCIUM 8.1 mg/dL (8.4-10.5); GFR NON-AFRICAN AMERICAN 52
[2018-07-13] MEDS: Tmp-Smz 800 mg-160 mg DS Tab PO SCH (09:42)
[2018-07-13] MEDS: Dextrose 5%/0.45% NS 1,000 ML IV SCH (09:43)
[2018-07-13] MEDS: Metoprolol Succinate 25 mg XL Tab PO SCH (11:10)
[2018-07-13 15:10] VITALS: BP 113/55; PULSE 83; RESP 20; TEMP 98.6; O2SAT 94
--- NOTE | 2018-07-17 01:28 | DS ---
HISTORY OF PRESENT ILLNESS: This is a delightful 87-year-old woman I have known for many years with a history of hypertension and status post mastectomy in 1956. She came to the [facility] emergency room after a fall at home, at which time she sustained a fracture of the left hip. She was seen in consultation by Dr. Varun Carranza and taken to the OR for surgical repair of the hip fracture. Postoperatively, she was a little confused the first day or two, but and then cleared sharp her baseline mental status, which for her age had a little bit of confusion to be noted at times, but she was well at her baseline, out of bed to chair, beginning to engage in activities or physical therapy and was ready for transfer to [facility] subacute rehab facility for additional physical therapy and close orthopedic consultation under Dr. Carranza. FINAL DISCHARGE DIAGNOSES: 1. Left hip fracture. 2. Hypertension. 3. Status post mastectomy in 1956. Holden Nicolas MD
== END 2018-07-13 16:41 | DRG 481 ==
LOC: ED 20:56 → ERH 07-10 00:27 → 5RNO 07-10 02:25
PROVIDERS: ADMIT Internal Medicine; ATTEND Internal Medicine
PROC: 0QS704Z Reposition Left Upper Femur with Internal Fixation Device, Open Approach (ICD-10-PCS; principal; 2018-07-10 13:00)
DX: S72.142A Displaced intertrochanteric fracture of left femur, initial encounter for closed fracture (principal); N39.0 Urinary tract infection, site not specified; I10 Essential (primary) hypertension; E78.5 Hyperlipidemia, unspecified; R41.3 Other amnesia; W01.0XXA Fall on same level from slipping, tripping and stumbling without subsequent striking against object, initial encounter; Y92.009 Unspecified place in unspecified non-institutional (private) residence as the place of occurrence of the external cause; Z85.3 Personal history of malignant neoplasm of breast; Z90.10 Acquired absence of unspecified breast and nipple; Z90.49 Acquired absence of other specified parts of digestive tract; Z88.0 Allergy status to penicillin